=== PATIENT | male | born 1980 | race African-American/Black ===

== ENCOUNTER 2021-09-30 22:19 | Emergency (ER) | payer OTHER ==
[~2021-09-30] VITALS: Ht 175.3 cm; Wt 65.4 kg
[2021-09-30 23:03] VITALS: BP 124/72
[2021-10-01] MEDS ORDERED: OFLO5DRO3 EACHEYE (05:43)
== END 2021-10-01 05:54 | disposition home or self-care (01) ==
LOC: EDSEX 22:19 → ER 22:19
DX: H57.11 Ocular pain, right eye (principal)
CPT/HCPCS: 70486; 99284